=== PATIENT | male | born 1960 | race Caucasian/White ===

== ENCOUNTER 2019-04-30 09:47 | Day surgery (SDC) | payer OTHER ==
[~2019-04-30] VITALS: Ht 156.5 cm; Wt 77.2 kg
[~2019-04-30 09:47] MED LIST: AMLO-147 PO
[2019-04-30] MEDS ORDERED: IODIXANOL LOCM 100 ML BTL ONE (10:47)
[2019-04-30] MEDS ORDERED: LIDOCAINE 1% (MDV) 20 ML INJ ONE (10:47)
[2019-04-30] MEDS ORDERED: HEPARIN 1000 UNITS/ML 10 ML INJ ONE (10:48)
[2019-04-30] MEDS ORDERED: HEPARIN 1000 UNITS/NS (A-LINE) 1,000 ML ONE (10:48)
[2019-04-30 10:53] VITALS: Ht 156.5 cm; Wt 77.2 kg
[2019-04-30 10:55] VITALS: BP 116/62; PULSE 57; RESP 16
[2019-04-30 12:10] VITALS: BP 137/77; PULSE 56; RESP 18
== END 2019-04-30 15:50 | disposition home or self-care (01) ==
LOC: SDS 09:47
PROVIDERS: ATTEND Surgery Vascular Surgery
DX: I12.0 Hypertensive chronic kidney disease with stage 5 chronic kidney disease or end stage renal disease (principal); N18.6 End stage renal disease
CPT/HCPCS: 36901; 36907; C1894; J1644; Q9967; Z7610